=== PATIENT | female | born 1975 | race Caucasian/White ===

== ENCOUNTER 2024-12-29 03:09 | Emergency (ER) | payer OTHER ==
[~2024-12-29] VITALS: Ht 162.6 cm; Wt 77.1 kg
[2024-12-29] MEDS: IV NORMAL SALINE 500 ML BAG IV ONE (03:45)
[2024-12-29] MEDS ORDERED: MORPHINE SULFATE 4 MG/1 ML DISP.SYRIN ONE (03:46)
[2024-12-29] MEDS ORDERED: FAMOTIDINE. 20 MG/2 ML VIAL IV ONE (03:46)
[2024-12-29] MEDS ORDERED: ONDANSETRON 4 MG/2 ML VIAL ONE (03:46)
[2024-12-29 03:52] LABS: PLATELET COUNT (AUTO) 212 K/uL (179-408); RED BLOOD CELL COUNT(AUTO) 4.62 MIL/uL (3.63-4.92); RED CELL DISTRIBUTION WIDTH 12.1 % (12.3-17.7); WHITE BLOOD COUNT (AUTO) 8.1 K/uL (3.8-11.8)
[2024-12-29] MEDS: ONDANSETRON 4 MG/2 ML VIAL IV ONE (03:56)
[2024-12-29] MEDS: FAMOTIDINE. 20 MG/2 ML VIAL IV ONE (03:56)
[2024-12-29] MEDS: MORPHINE SULFATE 2 MG/1 ML DISP.SYRIN IV ONE (03:56)
[2024-12-29 04:02] LABS: *BILIRUBIN,URIN NEGATIVE (NEGATIVE); *CLARITY,URINE CLEAR (CLEAR); *COLOR,URINE YELLOW (YELLOW); *KETONES,URINE NEGATIVE (NEGATIVE); *PROTEIN,URINE NEGATIVE (NEGATIVE); *UROBILINOGEN,URINE 0.2 E.U./dl (NORMAL); LEUKOCYTE ESTERASE ,URINE NEGATIVE (NEGATIVE); NITRITE, URINE NEGATIVE (NEGATIVE); UGLUCOSE NEGATIVE (NEGATIVE)
[2024-12-29] MEDS ORDERED: diphenhydrAMINE 50 MG/1 ML VIAL ONE (04:02)
[2024-12-29 04:03] LABS: CREATININE 1.0 mg/dL (0.6-1.3); SODIUM SERUM 147.0 mmol/L (136-145); UREA NITROGEN, BLOOD 19.0 mg/dL (7-18)
[2024-12-29] MEDS ORDERED: HYDROMORPHONE 1 MG/1 ML DISP.SYRIN ONE (04:03)
[2024-12-29 04:06] LABS: *BLOOD, URINE TRACE (NEGATIVE)
[2024-12-29 04:08] LABS: ASPARTATE AMINOTRANSFERASE 31.0 U/L (15-37); TOTAL PROTEIN, SERUM 7.5 g/dL (6.4-8.2)
[2024-12-29] MEDS: diphenhydrAMINE 50 MG/1 ML VIAL IV ONE (04:09)
[2024-12-29] MEDS: HYDROMORPHONE 1 MG/1 ML DISP.SYRIN IV ONE (04:09)
[2024-12-29 04:19] LABS: SQUAMOUS EPITHELIAL CELL,UR FEW /HPF (NONE SEEN)
[2024-12-29] MEDS ORDERED: KETAMINE HCL 500 MG/5 ML VIAL ONE (04:23)
[2024-12-29] MEDS: KETAMINE HCL 500 MG/10 ML INJ IV ONE (04:32)
[2024-12-29 05:05] VITALS: BP 109/80
[2024-12-29] MEDS ORDERED: METOCLOPRAMIDE HCL 10 MG/2 ML VIAL ONE (05:48)
[2024-12-29] MEDS: METOCLOPRAMIDE HCL 10 MG/2 ML VIAL IV ONE (05:53)
[2024-12-29] MEDS ORDERED: LIDOCAINE VISCUS 2% 15 ML UDC ONE (06:19)
[2024-12-29] MEDS ORDERED: MAG HYDROX/AL HYDROX/SIMETH 30 ML LIQUID UDC ONE (06:19)
[2024-12-29] MEDS ORDERED: FAMO-132 PO (06:20)
[2024-12-29] MEDS ORDERED: METO-543 PO (06:20)
[2024-12-29] MEDS: LIDOCAINE VISCUS 2% 15 ML UDC MM ONE (06:24)
[2024-12-29] MEDS: MAG HYDROX/AL HYDROX/SIMETH 30 ML LIQUID UDC PO ONE (06:24)
[2024-12-29] MEDS: IV 1/2NS 1000 ML 500 ML IV PRN (06:43)
[2024-12-29 06:44] VITALS: BP 100/61; O2SAT 99
== END 2024-12-29 06:45 | disposition home or self-care (01) ==
LOC: ER 03:13
DX: R10.13 Epigastric pain (principal); R11.2 Nausea with vomiting, unspecified; E03.9 Hypothyroidism, unspecified; E87.6 Hypokalemia; E87.0 Hyperosmolality and hypernatremia; Z98.891 History of uterine scar from previous surgery
CPT/HCPCS: 99285; 96375; 74176; 96374; 76705; 96361; 80076; 80048; 81001; 83690; 85025; 85610; 36415; J1200; J1308; J3490 ×2; J2765; J2405; J1171; J2270; J7040; A4606; A4663